=== PATIENT | female | born 1995 | race Caucasian/White ===

== ENCOUNTER 2021-01-22 05:27 | Inpatient (IN) ==
[2021-01-22] MEDS ORDERED: OXYTOCIN 30 UNITS/500 ML BAG IV PRN ×2 (06:13→19:18)
[2021-01-22 07:46] LABS: Hematocrit (blood only) 41.2 % (37-47); Hemoglobin 14.4 g/dL (12.0-16.0); Mean Corpuscular Hemoglobin 35.2 pg (25-34); Mean Corpuscular Volume 100.7 fL (80-100); Mean Platelet Volume 13.3 fL (7.4-10.4); Platelet Count 118 K/uL (130-400); Platelet Estimate Decreased (Normal); RDW Coefficient of Variation 12.6 % (11.5-14.5); RDW Standard Deviation 45.6 fL (36.4-46.3); Red Blood Count 4.09 M/uL (4.2-5.4); White Blood Count 10.33 K/uL (4.8-10.8)
[2021-01-22] MEDS: LACTATED RINGER'S 1,000 ML IV PRN ×3 (09:29→15:48)
[2021-01-22] MEDS ORDERED: ePHEDrine sulfate 50 MG/ML AMP ONE (09:33)
[2021-01-22] MEDS ORDERED: fentaNYL citrate 100 MCG/2 ML VIAL ONE (09:33)
[2021-01-22] MEDS ORDERED: BUPIVACAINE 0.25% 30 ML VIAL ONE (09:33)
[2021-01-22] MEDS ORDERED: SODIUM CHLORIDE 0.9% INJ 10 ML VIAL ONE (09:33)
[2021-01-22] MEDS ORDERED: fentaNYL 2MCG/ML ROPIVACAINE 1.25MG/ML 100 ML BAG EPI ONE (09:34)
[2021-01-22 09:41] LABS: Creatinine Clr Calc Pharmacy 117.5 ml/min; Est GFR (African American) 140.3 ml/min; Est GFR (Non-African American) 121.1 ml/min
[2021-01-22] MEDS ORDERED: ePHEDrine sulfate 50 MG/ML AMP IV PRN (09:48)
[2021-01-22] MEDS ORDERED: fentaNYL 2MCG/ML ROPIVACAINE 1.25MG/ML 100 ML BAG EPI PRN (09:48)
[2021-01-22] MEDS ORDERED: ONDANSETRON INJ 2 MG/ML 2 ML VIAL IV PRN (09:48)
[2021-01-22] MEDS ORDERED: NALOXONE HCL 1 MG in SODIUM CHLORIDE 0.9% 1000ML 1,000 ML IV PRN (09:48)
[2021-01-22] MEDS ORDERED: NALBUPHINE HCL INJ 10 MG/ML AMP IV PRN (09:48)
[2021-01-22] MEDS ORDERED: NALOXONE HCL 0.4 MG/1 ML VIAL/CARP IV PRN (09:48)
[2021-01-22] MEDS ORDERED: diphenhydrAMINE 50 MG/ML VIAL IV PRN (09:48)
--- NOTE | 2021-01-22 09:48 | Anesthesiology Consultation ---
Date of Service January 22, 2021 Assessment & Plan ASA ASA2 Proposed Anesthesia Anesthesia Type: Labor Epidural Risk / Benefits Reviewed With: PT / POA / Parent / Guardian, Accepts Plan and Informed Consent Obtained History Height/Weight Height: 5 ft Weight: 77.111 kg Allergies Allergy/AdvReac Type Severity Reaction Status Date / Time No Known Allergies Allergy Verified 01/21/21 11:23 Medications Home Medications Medication Instructions Recorded Confirmed Last Taken vits 75-iron 28 mg-folic 1 pkg PO DAILY 05/06/20 01/22/21 01/21/21 acid 800 mcg-omega3 440 mg oral pack Active Medications Generic Name Dose Route Start Last Admin Trade Name Freq PRN Reason Stop Dose Admin Lactated Ringer's 1,000 mls @ 125 mls/hr 01/22/21 06:13 01/22/21 09:29 Lr IV 01/24/21 06:12 999 mls/hr .Q8H PRN Administration L&D Protocol Protocol Past Medical History Medical History Surgical abdomen Exercise / Class Metabolic Activity II 4-5 Yardwork/Stairs/Walk up hill Past Surgical History Surgical History Hx of tonsillectomy [place] teeth extracted Past Anesthesia History No Hx of Anesthesia Complications and No Family Hx of Anesthesia Complications History of PONV No Hx of PONV and No Hx of Motion Sickness Social History Smoking Status: Never smoker Hx Alcohol Use: No Hx Substance Use: No Review of Systems denies fever/cough/ colds/ chest pain/ SOB/ YARELY denies YARELY Physical Exam Vital Signs Last Vital Signs Temp 36.9 C 01/22/21 07:02 Pulse 101 H 01/22/21 09:44 Resp 20 01/22/21 07:02 BP 140/102 H 01/22/21 09:04 Pulse Ox 96 01/22/21 09:44 ENMT Mouth: no TMJ abnormality and no dentition abnormality Thyromental Distance: > or= 3.5 Finger Breadths Mallampati Class: II Neck neck extension not limited Respiratory normal respiratory effort; no respiratory distress Auscultation: lungs clear to auscultation bilaterally Cardiovascular Rate/Rhythm: regular rate and regular rhythm Neurologic moves all extremities Psychiatric Orientation: alert and oriented x 3 Testing Laboratory Results 01/22/21 06:21 01/22/21 09:10
--- NOTE | 2021-01-22 09:54 | History & Physical Report ---
Date of Service January 22, 2021 Assessment & Plan Admission and Anticipated Discharge Date Admission Date: January 22, 2021 IUP at 40 weeks in active labor requesting epidural analgesia BP elevated on admission but no PIH symptoms. PIH labs pending antcipate vaginal History of Present Illness Primary Care Provider: Lidia Alex Johnson Patient is a 25 yo white female EDC 01/23/21 who presents with SPROM at 0430 this morning. Contractions started shortly after this. GBS negative. otherwise has been uncomplicated. Allergies Allergy/AdvReac Type Severity Reaction Status Date / Time No Known Allergies Allergy Verified 01/21/21 11:23 Home Medications Medication Instructions Recorded Confirmed Type vits 75-iron 28 mg-folic 1 pkg PO DAILY 05/06/20 01/22/21 History acid 800 mcg-omega3 440 mg oral pack Patient History Medical History Surgical abdomen Surgical History Hx of tonsillectomy [place] teeth extracted Social History Smoking Status: Never smoker Hx Alcohol Use: No Hx Substance Use: No Preferred Language: Turkmen Communication Ability: Effective Box Car Washer Required: No Beliefs That Will Affect Care: None marital status: marital status details: Donnell (28) [phone] Current Living Situation: Spouse Current Living Situation Comment: house with current occupational status: employed current occupation: Payroll spec. @ [employer] Other Information That Helps Us Care for You: No Feels Safe at Home: Yes Safety Concerns: Feels Safe At This Time Assistive Devices: None Review of Systems All systems reviewed & are unremarkable except as noted in HPI & below Physical Exam Constitutional: WD/WN, vitals as above Respiratory: normal respiratory effort, lungs clear to auscultation Cardiovascular: RRR, no murmur, no edema Gastrointestinal (Abdomen): normal bowel sounds, soft, nontender, no hepatosplenomegaly Psychiatric: A+Ox3, euthymic affect Genitourinary: OB Exam Abdomen: + vertex, + estimated weight (6-7 pounds) and + regular contractions (2-3 minutes) Manual OB Exam: + cervical dilation 4 cm, + cervical effacement 100% and + station -1 OB Exam Monitor Tracing: + external uterine monitor used, + category I and + normal FHT variability Results & Data ([facility]) Vital Signs (Past 12 Hours) Vital Signs Temp Pulse Resp BP Pulse Ox 01/22/21 09:44 101 H 96 01/22/21 09:39 98 H 95 01/22/21 09:04 83 140/102 H 01/22/21 08:49 86 164/114 H 01/22/21 08:34 74 149/102 H 01/22/21 08:19 88 134/108 H 01/22/21 08:03 82 138/103 H 01/22/21 07:49 98 H 139/101 H 01/22/21 07:33 69 136/103 H 01/22/21 07:18 83 142/96 H 01/22/21 07:02 98.4 F 76 20 147/101 H 01/22/21 06:27 96 H 128/92 01/22/21 05:48 98.1 F 18 01/22/21 05:44 98.1 F 99 H 18 137/94 Coding Level of Care Code None
[2021-01-22] MEDS ORDERED: oxyCODONE/ACETAMINOPHEN 5mg/325mg TAB PO PRN (19:18)
[2021-01-22] MEDS ORDERED: SUPERCREAM 0.870% 15 GM JAR EXT PRN (19:18)
[2021-01-22] MEDS ORDERED: BENZOCAINE 20% AER SPR 82.5 GM CAN EXT PRN (19:18)
[2021-01-22] MEDS ORDERED: ACETAMINOPHEN 325 MG TAB PO PRN (19:18)
[2021-01-22] MEDS ORDERED: DIPHTHERIA/TETANUS/PERTUSSIS 0.5 ML SYR/VIAL IM ONE (19:18)
[2021-01-22] MEDS ORDERED: bisacodyL 10 MG SUPP PR PRN (19:18)
[2021-01-22] MEDS ORDERED: HYDROCORTISONE ACETATE 25 MG SUPP PR PRN (19:18)
[2021-01-22] MEDS: IBUPROFEN 600 MG TAB PO PRN (20:23)
--- NOTE | 2021-01-22 20:54 | Anesthesiology Progress Note ---
Date of Service January 22, 2021 Anesthesia Post Procedure Vital Signs Vital Signs: Temp Pulse Resp BP Pulse Ox 01/22/21 20:41 116 H 143/74 H 01/22/21 20:25 91 H 147/78 H 01/22/21 20:16 90 149/74 H 01/22/21 20:11 98 H 159/90 H 01/22/21 19:56 108 H 134/90 01/22/21 19:41 107 H 18 148/81 H 01/22/21 19:26 37.2 C 109 H 18 119/61 01/22/21 19:11 115 H 20 131/73 01/22/21 19:05 113 H 129/75 01/22/21 18:56 108 H 20 166/80 H 01/22/21 18:51 116 H 192/96 H 01/22/21 18:44 126 H 95 01/22/21 18:42 127 H 211/98 H 01/22/21 18:41 147 H 94 01/22/21 18:39 137 H 96 01/22/21 18:36 132 H 94 01/22/21 18:34 130 H 94 01/22/21 18:30 134 H 94 01/22/21 18:29 133 H 93 01/22/21 18:24 133 H 95 01/22/21 18:19 130 H 20 186/90 H 93 01/22/21 18:18 125 H 94 01/22/21 18:15 37.4 C 20 01/22/21 18:14 138 H 94 01/22/21 18:13 130 H 93 01/22/21 18:11 127 H 186/103 H 01/22/21 18:09 139 H 93 01/22/21 18:06 140 H 93 01/22/21 18:04 142 H 93 01/22/21 17:59 145 H 93 01/22/21 17:56 125 H 174/95 H 01/22/21 17:54 132 H 94 01/22/21 17:49 145 H 95 01/22/21 17:44 129 H 93 01/22/21 17:42 130 H 139/89 94 01/22/21 17:39 121 H 94 01/22/21 17:37 147 H 94 01/22/21 17:34 125 H 95 01/22/21 17:32 129 H 94 01/22/21 17:29 116 H 95 01/22/21 17:27 120 H 20 134/102 H 01/22/21 17:24 138 H 95 01/22/21 17:19 129 H 94 01/22/21 17:16 138 H 94 01/22/21 17:14 116 H 95 01/22/21 17:11 136 H 151/92 H 01/22/21 17:09 129 H 97 01/22/21 17:04 142 H 93 01/22/21 16:59 133 H 95 01/22/21 16:56 115 H 158/96 H 01/22/21 16:54 115 H 95 01/22/21 16:49 141 H 96 01/22/21 16:44 136 H 96 01/22/21 16:42 134 H 137/96 01/22/21 16:39 133 H 97 01/22/21 16:34 129 H 97 01/22/21 16:29 134 H 98 01/22/21 16:28 122 H 18 161/83 H 01/22/21 16:27 37.0 C 126 H 20 208/107 H 01/22/21 16:24 122 H 98 01/22/21 16:19 119 H 98 01/22/21 16:14 104 H 98 01/22/21 16:12 102 H 171/95 H 01/22/21 16:09 104 H 99 01/22/21 16:04 104 H 99 01/22/21 15:59 117 H 98 01/22/21 15:57 104 H 166/89 H 01/22/21 15:54 104 H 98 01/22/21 15:49 98 H 99 01/22/21 15:44 98 H 99 01/22/21 15:42 96 H 166/83 H 01/22/21 15:39 92 H 99 01/22/21 15:34 102 H 99 01/22/21 15:29 102 H 99 01/22/21 15:28 110 H 20 145/102 H 01/22/21 15:24 100 H 98 01/22/21 15:19 95 H 97 01/22/21 15:14 98 H 97 01/22/21 15:12 109 H 184/88 H 01/22/21 15:09 118 H 97 01/22/21 15:04 107 H 98 07/07/21 14:59 107 H 98 01/22/21 14:56 97 H 144/98 H 01/22/21 14:54 105 H 98 01/22/21 14:49 96 H 97 01/22/21 14:44 106 H 97 01/22/21 14:42 105 H 134/83 01/22/21 14:39 94 H 97 01/22/21 14:34 104 H 96 01/22/21 14:29 101 H 98 01/22/21 14:26 112 H 20 130/85 01/22/21 14:24 109 H 97 01/22/21 14:19 103 H 96 01/22/21 14:14 98 H 98 01/22/21 14:12 109 H 139/81 01/22/21 14:09 99 H 97 01/22/21 14:04 98 H 98 01/22/21 13:59 102 H 96 01/22/21 13:57 102 H 141/84 H 01/22/21 13:54 91 H 96 01/22/21 13:49 95 H 96 01/22/21 13:45 118 H 167/95 H 01/22/21 13:44 111 H 97 01/22/21 13:43 104 H 183/103 H 01/22/21 13:39 110 H 97 01/22/21 13:34 101 H 96 01/22/21 13:29 114 H 97 01/22/21 13:27 118 H 20 130/88 01/22/21 13:24 92 H 97 01/22/21 13:19 78 96 01/22/21 13:14 83 97 01/22/21 13:11 86 140/78 01/22/21 13:09 77 97 01/22/21 13:04 97 H 96 01/22/21 12:59 75 96 01/22/21 12:57 80 132/73 01/22/21 12:54 81 97 01/22/21 12:49 84 97 01/22/21 12:44 75 97 01/22/21 12:41 84 131/80 01/22/21 12:39 76 97 01/22/21 12:34 99 H 98 01/22/21 12:29 87 96 01/22/21 12:26 76 18 126/70 01/22/21 12:24 74 98 01/22/21 12:19 84 97 01/22/21 12:14 92 H 97 01/22/21 12:11 92 H 118/72 01/22/21 12:09 80 100 01/22/21 12:04 81 100 01/22/21 11:59 80 99 01/22/21 11:57 80 123/74 01/22/21 11:54 94 H 100 01/22/21 11:49 79 99 01/22/21 11:44 77 99 01/22/21 11:42 76 118/63 01/22/21 11:39 77 99 01/22/21 11:34 80 99 01/22/21 11:29 84 99 01/22/21 11:26 36.7 C 76 20 118/61 01/22/21 11:24 89 99 01/22/21 11:19 83 99 01/22/21 11:14 83 100 01/22/21 11:12 81 124/65 01/22/21 11:09 80 99 01/22/21 11:04 85 100 01/22/21 10:59 89 100 01/22/21 10:56 90 20 125/72 01/22/21 10:54 77 100 01/22/21 10:49 90 100 01/22/21 10:44 82 100 01/22/21 10:40 93 H 127/69 01/22/21 10:39 96 H 100 01/22/21 10:37 96 H 113/61 01/22/21 10:36 109 H 123/83 01/22/21 10:34 89 99 01/22/21 10:29 102 H 98 01/22/21 10:24 109 H 94 01/22/21 10:23 79 20 152/89 H 01/22/21 10:19 103 H 160/101 H 94 01/22/21 10:17 93 H 175/93 H 94 01/22/21 10:14 108 H 94 01/22/21 10:09 116 H 94 01/22/21 10:04 110 H 96 01/22/21 09:59 98 H 97 01/22/21 09:54 85 97 01/22/21 09:49 105 H 96 01/22/21 09:44 101 H 96 01/22/21 09:39 98 H 95 01/22/21 09:04 83 20 140/102 H 01/22/21 08:49 86 164/114 H 01/22/21 08:34 74 149/102 H 01/22/21 08:19 88 134/108 H 01/22/21 08:03 82 138/103 H 01/22/21 07:49 98 H 139/101 H 01/22/21 07:33 69 136/103 H 01/22/21 07:18 83 142/96 H 01/22/21 07:02 36.9 C 76 20 147/101 H 01/22/21 06:27 96 H 128/92 01/22/21 05:48 36.7 C 18 01/22/21 05:44 36.7 C 99 H 18 137/94 Pain Intensity Bilateral Abdomen: Pain Intensity: 0 Transfer of Care Handoff Completed per policy Notes Mental Status: alert / awake / arousable and participated in evaluation Patient Amnestic to Procedure: Yes Nausea / Vomiting: adequately controlled Pain: adequately controlled Airway Patency, RR, SpO2: stable & adequate BP & HR: stable & adequate Hydration State: stable & adequate Anesthetic Complications: no major complications apparent and Pt Satisfied with anesthetic care
--- NOTE | 2021-01-22 21:01 | Delivery Summary ---
Vaginal Delivery Summary Date of Service January 22, 2021 Patient is a 25-year-old nulliparous white female presented at 40+ weeks with ruptured membranes and spontaneous onset of contractions. She received effective epidural analgesia. She progressed to full dilation and pushed effectively over intact perineum for delivery of a viable male . After the head was delivered the rest of the infant delivered easily and was placed on the mother's abdomen for further attention and drying. There was poor respiratory effort and tone and the baby was placed on the bed for further stimulation and resuscitation. This was done after cord was clamped and cut. The placenta was expressed intact with a three-vessel cord a first-degree va ginal laceration was repaired with 3-0 chromic. Estimated blood loss was 300 cc. bleeding was controlled with dilute Pitocin. The infant responded to positive pressure ventilation and had spontaneous crying with better tone. As a precaution the baby was taken to the nursery for further evaluation. Please see toolman's notes for further information on the resuscitation. Vaginal Delivery Summary and 1st Degree LAC [facility] Vaginal Delivery Charge Delivery Type Details: and 1st Degree LAC
[2021-01-23] MEDS: IBUPROFEN 600 MG TAB PO PRN ×4 (03:17→20:37)
[2021-01-23] MEDS: DOCUSATE SODIUM 100 MG CAP PO SCH ×3 (06:29→20:37)
[2021-01-23 06:56] LABS: Hemoglobin 12.2 g/dL (12.0-16.0); Mean Corpuscular Hemoglobin 35.1 pg (25-34); Mean Corpuscular Hgb Conc 33.9 g/dL (32-36); Mean Corpuscular Volume 103.4 fL (80-100); Mean Platelet Volume 12.8 fL (7.4-10.4); Platelet Count 89 K/uL (130-400); RDW Coefficient of Variation 12.7 % (11.5-14.5); RDW Standard Deviation 47.5 fL (36.4-46.3); Red Blood Count 3.48 M/uL (4.2-5.4)
[2021-01-23] MEDS: PRENATAL VITAMIN 1 TAB PO SCH (07:45)
[2021-01-23] MEDS ORDERED: bisacodyL 5 MG TABEC PO SCH (20:00)
[2021-01-24 07:06] LABS: Hematocrit (blood only) 37.1 % (37-47); Hemoglobin 12.6 g/dL (12.0-16.0)
[2021-01-24] MEDS: DOCUSATE SODIUM 100 MG CAP PO SCH (07:41)
[2021-01-24] MEDS: IBUPROFEN 600 MG TAB PO PRN (07:41)
[2021-01-24] MEDS: PRENATAL VITAMIN 1 TAB PO SCH (07:41)
--- NOTE | 2021-01-24 07:45 | Obstetrical Progress Note ---
Date of Service January 24, 2021 Assessment & Plan (1) Encounter for care and examination after delivery: day 2 s/p . Doing well. Stable for discharge. Subjective Ambulation: ambulating normally Voiding: no voiding problems Passing Gas:: Yes Diet Tolerance:: regular diet Lochia:: Moderate Physical Exam Constitutional WD/WN, vitals as above Respiratory normal respiratory effort; no respiratory distress and no labored breathing Gastrointestinal (Abdomen) Inspection/Auscultation: abdomen normal to inspection; abdomen not distended Percussion/Palpation: abdomen soft; abdomen nontender, no guarding and abdomen not rigid Genitourinary OB Exam Abdomen: + fundal height Fundus: + firm and + relation to umbilicus (Below); not tender and not boggy Results & Data ([facility]) Vital Signs (Past 12 Hours) Vital Signs Temp Pulse Resp BP Pulse Ox 01/23/21 23:20 36.6 C 83 17 125/86 98
== END 2021-01-24 10:10 | disposition home or self-care (01) | DRG 807 ==
LOC: OPB 05:27 → 4S1 05:32 → 4S2 21:59

== ENCOUNTER 2022-12-01 01:46 | Inpatient (IN) ==
[2022-12-01] MEDS ORDERED: LACTATED RINGER'S 1,000 ML IV SCH ×2 (02:15→04:18)
--- NOTE | 2022-12-01 02:20 | History & Physical Report ---
Date of Service December 01, 2022 Assessment & Plan (1) Breech presentation: Plan: Grossly ruptured membranes 37 weeks plus breech confirmed by ultrasound at the bedside and cervix is closed and 50% I have recommended section discussed risks benefits alternatives section. The patient was counseled to the nature of the procedure including alternatives such as labor. Risks were discussed including bleeding infection injury to bowel bladder ureter vessels and even baby. Deep Vein thrombosis, pulmonary embolus discussed. Breakdown of incision reviewed. Deep vein thrombosis pulmonary embolus hernia and failure of the incision to heal were discussed Patient verbalized understanding of this and was given ample time to ask questions History of Present Illness Primary Care Provider: Lidia Johnson Visit [facility] Calculator Estimated Delivery Date Method Current WG Current Estimate 12/20/22 LMP (Certain) 36w 5d Other Estimates 12/18/22 Ultrasound #1 37w 0d LMP: 03/15/22 : 3 Full term: 1 Premature: 0 Total Number of Induced Abortions: 1 Total Number of Spontaneous Abortions: 0 Ectopics: 0 Multiple births: 0 Number of Living Children: 1 and Delivery Plans Rubella Equivocal Offer MMR pp Flu vaccine given 05/15/22- OB Visit Log Initial Weight:153 lb Allergies Allergy/AdvReac Type Severity Reaction Status Date / Time No Known Allergies Allergy Verified 11/27/22 07:39 Home Medications Medication Instructions Recorded Confirmed Type vits 75-iron 28 mg-folic 1 pkg PO DAILY 05/06/20 11/27/22 History acid 800 mcg-omega3 440 mg oral pack (Daily ) Patient History Surgical History Hx of tonsillectomy [place] teeth extracted Social History Smoking Status: Never smoker Do You Dip or Chew Tobacco: No; Hx Alcohol Use: No Hx Substance Use: No Preferred Language: Portuguese Communication Ability: Effective Staff Nuclear Weapons Officer Required: No Beliefs That Will Affect Care: None marital status: marital status details: Donnell (30) [phone] Current Living Situation: Spouse Current Living Situation Comment: lives with spouse and son, cats, 1 dog, spouse to change litter. current occupational status: unemployed current occupation: Payroll spec. @ [employer] Feels Safe at Home: Yes Assistive Devices: None Review of Systems as per Subjective / HPI Physical Exam Constitutional: WD/WN, vitals as above well developed and well nourished Respiratory: normal respiratory effort, lungs clear to auscultation normal respiratory effort Cardiovascular: RRR, no murmur, no edema Gastrointestinal (Abdomen): normal bowel sounds, soft, nontender, no hepatosplenomegaly Results & Data Vital Signs (Past 12 Hours) Vital Signs Pulse BP 12/01/22 02:08 103 H 132/82 Coding Level of Care Code None Diagnoses Breech presentation O32.1XX0
[2022-12-01 02:47] LABS: Hematocrit (blood only) 40.7 % (37.0-47.0); Hemoglobin 14.5 g/dl (12.0-16.0); Mean Corpuscular Hemoglobin 36.1 pg (25.0-34.0); Mean Corpuscular Hgb Conc 35.6 g/dL (32.0-36.0); Mean Corpuscular Volume 101.2 fL (80.0-100.0); Mean Platelet Volume 13.3 fL (9.4-12.4); Platelet Count 112 K/uL (130-400); RDW Coefficient of Variation 12.4 % (11.5-14.5); Red Blood Count 4.02 M/uL (4.20-5.40); White Blood Count 10.06 K/ul (4.8-10.8)
[2022-12-01] MEDS ORDERED: OXYTOCIN 10 UNITS/ML 10ML VIAL ONE ×2 (02:50→03:44)
[2022-12-01] MEDS ORDERED: METOCLOPRAMIDE HCL INJ 5 MG/ML 2 ML VIAL ONE (02:50)
[2022-12-01] MEDS ORDERED: ONDANSETRON INJ 2 MG/ML 2 ML VIAL ONE (02:50)
[2022-12-01] MEDS ORDERED: MoRPHine SULFATE PF 1 MG/ML 10 ML AMP/VIAL ONE (02:50)
[2022-12-01] MEDS ORDERED: CITRIC ACID/SODIUM CITRATE 15 ML UDC ONE (02:50)
[2022-12-01] MEDS ORDERED: fentaNYL citrate PF 100 MCG/2 ML VIAL ONE (02:50)
--- NOTE | 2022-12-01 03:03 | Anesthesiology Consultation ---
Date of Service December 01, 2022 Assessment & Plan (1) Supervision of normal intrauterine in multigravida: Chart Review Chart Review: Acceptable Risk for Surgery Consults Requested none ASA ASA2 Proposed Anesthesia Anesthesia Type: Spinal Risk / Benefits Reviewed With: PT / POA / Parent / Guardian, Accepts Plan and Informed Consent Obtained History Surgery Operation Date: 12/01/22 03:30 Proposed Procedures p Section in LD - J. Joe Jolly MD, FACOG Height/Weight Height: 5 ft Weight: 81.647 kg Allergies Allergy/AdvReac Type Severity Reaction Status Date / Time No Known Allergies Allergy Verified 12/01/22 02:35 Medications Home Medications Medication Instructions Recorded Confirmed Last Taken vits 75-iron 28 mg-folic 1 pkg PO DAILY 05/06/20 12/01/22 11/30/22 acid 800 mcg-omega3 440 mg oral pack (Daily ) Active Medications Generic Name Dose Route Start Last Admin Trade Name Freq PRN Reason Stop Dose Admin Cefazolin Sodium 2,000 mg in 15 mls @ 3.75 mls/min 12/01/22 06:00 12/01/22 03:06 Ancef 2000mg IV 12/01/22 18:00 3.75 mls/min PREOP JAMILA Administration Protocol Lactated Ringer's 1,000 mls @ 999 mls/hr 12/01/22 02:15 12/01/22 02:31 Lr IV 12/01/22 03:15 999 mls/hr .Q1H1M JAMILA Administration NPO Date Last Intake of Fluids: 12/01/22 Time Last Intake of Fluids: 00:00 Date Last Intake of Solids: 11/30/22 Time Last Intake of Solids: 17:30 Exercise / Class Metabolic Activity II 4-5 Yardwork/Stairs/Walk up hill Past Surgical History Surgical History Hx of tonsillectomy [place] teeth extracted Past Anesthesia History No Hx of Anesthesia Complications and No Family Hx of Anesthesia Complications History of PONV No Hx of PONV and No Hx of Motion Sickness Social History Smoking Status: Never smoker Do You Dip or Chew Tobacco: No Hx Alcohol Use: No Hx Substance Use: No substance use type: does not use Physical Exam Vital Signs Last Vital Signs Temp 36.9 C 12/01/22 02:37 Pulse 103 H 12/01/22 02:08 Resp 16 12/01/22 02:37 BP 132/82 12/01/22 02:08 ENMT Mouth: no TMJ abnormality Thyromental Distance: > or= 3.5 Finger Breadths Mallampati Class: II Neck normal visual inspection and trachea midline; neck extension not limited Respiratory normal respiratory effort Auscultation: lungs clear to auscultation bilaterally Cardiovascular Rate/Rhythm: regular rate and regular rhythm Heart Sounds: no murmur Musculoskeletal Spine: normal cervical ROM Extremities: full ROM of extremities Neurologic moves all extremities Psychiatric Orientation: alert and oriented x 3 Testing Laboratory Results 12/01/22 02:28
[2022-12-01] MEDS ORDERED: LACTATED RINGER'S 500 ML IV PRN (03:06)
[2022-12-01] MEDS ORDERED: KETOROLAC 30 MG/ML VIAL IV PRN ×2 (03:06→21:07)
[2022-12-01] MEDS ORDERED: ePHEDrine sulfate 50 MG/ML AMP IV PRN (03:06)
[2022-12-01] MEDS ORDERED: ONDANSETRON INJ 2 MG/ML 2 ML VIAL IV PRN ×2 (03:06→21:07)
[2022-12-01] MEDS ORDERED: METOCLOPRAMIDE HCL 20 MG in SODIUM CHLORIDE 0.9% 50 ML IV PRN (03:06)
[2022-12-01] MEDS ORDERED: diphenhydrAMINE 50 MG/ML VIAL IV PRN ×2 (03:06→21:07)
[2022-12-01] MEDS ORDERED: NALOXONE HCL 1 MG in SODIUM CHLORIDE 0.9% 1000ML 1,000 ML IV PRN (03:06)
[2022-12-01] MEDS ORDERED: MoRPHine SULFATE PF 1 MG/ML 10 ML AMP/VIAL INT SPINAL ONE (03:06)
[2022-12-01] MEDS ORDERED: NALBUPHINE HCL INJ 10 MG/ML AMP IV PRN (03:06)
[2022-12-01] MEDS ORDERED: MoRPHine SULFATE 2 MG/ML CARP IV PRN (03:06)
[2022-12-01] MEDS ORDERED: NALOXONE HCL 0.08 MG in SYRINGE 1.8 ML IV PRN (03:06)
[2022-12-01] MEDS ORDERED: NALOXONE HCL 0.4 MG/1 ML VIAL/CARP IV PRN (03:06)
[2022-12-01] MEDS ORDERED: NO NARCOTICS OR SEDATIVES SCH (03:15)
[2022-12-01] MEDS ORDERED: DC INTRASPINAL MORPHINE SCH (03:15)
[2022-12-01] MEDS ORDERED: SODIUM CHLORIDE 0.9% 1000ML 1,000 ML IV SCH (03:15)
[2022-12-01] MEDS ORDERED: PHENYLEPHRINE 100MCG/ML 5ML SYR ONE (03:28)
[2022-12-01] MEDS ORDERED: ePHEDrine sulfate 50 MG/ML SYR ONE (03:54)
--- NOTE | 2022-12-01 04:08 | Operative Report ---
PG Post Operative Report Pre & Post Diagnosis Operation Date: 12/01/22 03:30 Pre-Op Diagnosis: 1. Breech presenation 2. Rupture of membranes Post-Op Diagnosis: 1. Breech presenation 2. Rupture of membranes I identified the patient and participated in the time-out.: Yes Procedure Operation Date: 12/01/22 03:30 Actual Procedures p Section in LD Delivery of live female child at 0338 - Vanna Jolly MD, FACOG Surgeon Vanna Jolly MD, FACOG Botanical Technical Officer Dr. Ferreira Estimated Blood Loss 700 Findings Consistent with Post-Op Diagnosis Specimens Cord gases and cord blood Description of Procedure Regional anesthetic had been given by anesthesia patient was prepped and draped with a leftward tilt preoperative antibiotics had been given in appropriate timing by anesthesiology. Once the prep was allowed to fully dry timeout was performed. Pickups with teeth were used to test the incision area was found to be adequate for incision as the patient did not feel sharp pain. Scalpel was used to make a Pfannenstiel incision on the lower abdomen. We then cut through the subcutaneous fat down to the level of the anterior rectus sheath fascia this was cut in the midline and then extended laterally with the curved Jennings scissors. At this stage we then placed 2 Darby clamps on the anterior aspect of the fascia. Using the curved Jennings's we are able to dissect the fascia superiorly away from the rectus muscles. Care was taken to maintain hemostasis. Darby clamps were then placed to the inferior aspect of the anterior sheath of the fascia. Fascia was then dissected away from the rectus muscles inferiorly towards the pubic bone. A Darby was then placed in the midline both inferiorly and superiorly. This was to allow exposure by retraction rectus muscles were in the midline with were then able to cut through the peritoneum and then enter the peritoneal cavity. Opening was enlarged to allow exposure of the peritoneal cavity both superiorly and inferiorly. Once adequate space was obtained a bladder retractor was placed to expose the lower segment Metzenbaums were used to dissect the bladder flap inferiorly away from the uterus. This was done sharply bladder retractor was then repositioned to expose the lower segment of the uterus Fresh scalpel was used to make a low transverse incision on the uterus. Uterus was then entered bluntly with the operators finger, membranes ruptured and the opening was enlarged using the operators fingers bluntly pulling superiorly and inferiorly to allow exposure. Baby was delivered by first flexion of the breech presenting part which is the buttocks elevation of the breech out of the pelvis and then rotation of the back anterior delivery of both of the legs and then sweeping the arms medially towards the chest to deliver both of these there was no nuchal cord baby's head was easily delivered without excessive extension live vigorous female infant. Live vigorous infant. Fluid was clear cord clamped and cut cord gases obtained cord blood obtained baby handed to pediatrics. Placenta removed was removed with traction we ensure the entire placenta was removed with a moist lap sponge into the uterus. Uterus and adnexa were normal Uterus was then exteriorized. IV Pitocin had been started by anesthesia tone improved there were no extensions the uterus was then closed using 0 Monocryl in a 2 layer closure the first layer closed in a running locked fashion from left to right and then a second closure from left to right in a running nonlocked fashion. At this stage hemostasis was excellent. Uterus was placed back in the peritoneal cavity with suction irrigation out and inspection of the uterus at this stage revealed excellent hemostasis Retractors were removed urine color was clear at this stage of the case we inspected the rectus muscles they were hemostatic fascia was closed with 0 Vicryl subcutaneous fat was irrigated and closed with 3-0 Vicryl skin closed with 4-0 subcuticular Monocryl I attest to the content of the Intraoperative Record and any orders documented therein. Any exceptions are noted below. OB Procedure Charges 12674
[2022-12-01] MEDS ORDERED: HYDROCORTISONE ACETATE 25 MG SUPP PR PRN (04:18)
[2022-12-01] MEDS ORDERED: SENNA 8.6 MG TAB PO PRN (04:18)
[2022-12-01] MEDS ORDERED: MAGNESIUM HYDROXIDE SUSP 30 ML UDC PO PRN (04:18)
[2022-12-01] MEDS ORDERED: DIPHTHERIA/TETANUS/PERTUSSIS Vaccine (Tdap, Age 7+yrs) 0.5mL SYR/VL IM ONE (04:18)
[2022-12-01] MEDS ORDERED: BENZOCAINE 20% AER SPR 82.5 GM CAN EXT PRN (04:18)
--- NOTE | 2022-12-01 04:23 | Anesthesiology Progress Note ---
Date of Service December 01, 2022 Anesthesia Post Procedure Vital Signs Vital Signs: Temp Pulse Resp BP Pulse Ox 12/01/22 02:37 36.9 C 16 12/01/22 04:21 96 12/01/22 04:21 91 H 12/01/22 04:21 95/60 L 12/01/22 04:19 96 12/01/22 04:19 94 H 12/01/22 04:17 95 12/01/22 04:17 78 12/01/22 04:17 94 12/01/22 04:17 85 12/01/22 04:15 95 12/01/22 04:15 84 12/01/22 04:13 95 12/01/22 04:13 85 12/01/22 04:13 78 12/01/22 04:13 94/52 L 12/01/22 04:10 95 12/01/22 04:11 92 12/01/22 04:10 81 12/01/22 04:11 85 12/01/22 02:08 103 H 132/82 Notes Mental Status: alert / awake / arousable Patient Amnestic to Procedure: Yes Nausea / Vomiting: adequately controlled Pain: adequately controlled Airway Patency, RR, SpO2: stable & adequate BP & HR: stable & adequate Hydration State: stable & adequate Neuraxial Anesthesia: was administered and sensory block is resolving Anesthetic Complications: no major complications apparent
[2022-12-01] MEDS: OXYTOCIN 20 UNITS in LACTATED RINGER'S 1,000 ML IV SCH ×2 (04:31→12:33)
[2022-12-01] MEDS ORDERED: ceFAZolin 2000MG 2,000 MG/15 ML SYR IV SCH (06:00)
[2022-12-01] MEDS ORDERED: SODIUM CHLORIDE 0.9% 250 ML IV PRN (07:18)
[2022-12-01 07:26] LABS: Base Excess Cord Arterial Bld -0.2 mEq/L (-9-1.8); Base Excess Cord Venous Blood -0.8 mEq/L (-7.7-1.9); CO2 Cord Arterial Blood 63 mmHg (39.1-73.5); Cord Venous Blood HCO3 26 mmol/L (18.4-26.8); Cord Venous Blood PCO2 52 mmHg (30.4-57.2); Cord Venous Blood PO2 16 mmHg (14.1-43.3); Cord Venous Blood pH 7.31 (7.20-7.44); HCO3 Cord Arterial Blood 28 mmol/L (19.7-28.5); O2 Saturation Cord Venous Bld < 60.0 % (<68); Oxygen Sat Cord Arterial Blood < 60.0 % (<60); PO2 Cord Arterial Blood 8 mmHg (4.1-31.7); pH Cord Arterial Blood 7.26 (7.1-7.38)
[2022-12-01] MEDS: FERROUS SULFATE 325 MG TAB PO SCH (08:27)
[2022-12-01] MEDS: SIMETHICONE 80 MG CHEW PO SCH ×4 (08:27→20:20)
[2022-12-01] MEDS: PRENATAL VITAMIN 1 TAB PO SCH (08:27)
[2022-12-01] MEDS: DOCUSATE SODIUM 100 MG CAP PO SCH ×2 (08:29→20:20)
[2022-12-01] MEDS ORDERED: PROMETHAZINE HCL 25 MG in SODIUM CHLORIDE 0.9% 50 ML IV PRN (21:07)
[2022-12-01] MEDS ORDERED: diphenhydrAMINE Capsule 25 MG CAP PO PRN (21:07)
[2022-12-01] MEDS: oxyCODONE/ACETAMINOPHEN 5mg/325mg TAB PO PRN (21:42)
[2022-12-01] MEDS: IBUPROFEN 600 MG TAB PO PRN (21:42)
--- NOTE | 2022-12-02 05:40 | Obstetrical Progress Note ---
Date of Service <Mili Chu - Last Filed: 12/02/22 06:35> December 02, 2022 Assessment & Plan <Mili Alex Chu - Last Filed: 12/02/22 06:35> (1) care following delivery: Patient is PPD 1 s/p C/S and doing well. - Eating well, voiding well, ambulating well - Vitals reviewed and within normal limits - Pain well controlled with analgesics - OOB, ambulation, diet progression as tolerated - Blood type: A+, GBS neg, rubella equivocal (MMR ordered) - Plan to discharge tomorrow or Wednesday - After discharge, 6 week follow up with Dr. Jolly (2) Rubella non-immune status, antepartum: <Trisha Ferreira, DO - Last Filed: 12/02/22 07:58> (1) care following delivery: (2) Rubella non-immune status, antepartum: Subjective <Mili Chu DO - Last Filed: 12/02/22 06:35> Patient is a 27 yo female is POD #1 following delivery at 37 2/7 weeks. She reports feeling well overall this morning. She endorses mild abdominal cramping and 1-2/10 pain well managed on analgesics. Voiding without issue. Tolerating regular meals overnight and able to ambulate some. Persistent lochia with some improvement this morning. Currently breast feeding. Review of Systems Denies fever, chills, sweats. Denies SOB, difficulty breathing, chest pain, palpitations, and chest pressure. Denies breast pain. Denies dysuria. Denies headache or changes in vision. Physical Exam <Mili Chu DO - Last Filed: 12/02/22 06:35> General: Alert and oriented. No acute distress. CV: Regular rate and rhythm. No murmurs. Respiratory: CTA bilaterally. No rhonchi, wheezes, or crackles. No increased work of breathing. Abdomen: Positive bowel sounds. Soft, nontender, and nondistended. Uterus: Fundus firm and palpable 2 cm below umbilicus. Surgical scar clean and healing well. Lower extremities: No LE edema. No deep calf pain. Results & Data <Mili Chu DO - Last Filed: 12/02/22 06:35> Vital Signs (Past 12 Hours) Vital Signs Temp Pulse Resp BP Pulse Ox O2 Del Method 12/02/22 00:00 36.7 C 76 16 97/62 L 96 Room Air 12/01/22 21:00 16 100 12/01/22 20:00 36.9 C 80 16 99/66 L 100 Room Air 12/01/22 20:00 16 100 12/01/22 19:07 16 99 12/01/22 18:17 18 98 12/01/22 18:04 16 100 <Trisha Ferreira, - Last Filed: 12/02/22 07:58> Co-Signing Physician Notes Resident Physician Supervision Note: I interviewed and examined the patient. Discussed with Dr. Chu and agree with findings and plan as documented in the note. Any exceptions or clarifications are listed here: POD#1 doing well, incision CDI, abdomen soft/nontender. Fundus firm. Routine postop care. Documented By: Trisha Ferreira DO Resident Activity Tracking <Mili Chu, DO - Last Filed: 12/02/22 06:35> Resident Involvement: Resident Care Provided Care Provided: OB Delivery
[2022-12-02] MEDS ORDERED: MEASLES, MUMPS & RUBELLA VIRUS VIAL SQ ONE (06:35)
[2022-12-02 08:07] LABS: Hematocrit (blood only) 33.7 % (37.0-47.0); Hemoglobin 11.3 g/dl (12.0-16.0); Mean Corpuscular Hemoglobin 35.3 pg (25.0-34.0); Mean Corpuscular Hgb Conc 33.5 g/dL (32.0-36.0); Mean Corpuscular Volume 105.3 fL (80.0-100.0); Mean Platelet Volume 12.3 fL (9.4-12.4); Platelet Count 90 K/uL (130-400); RDW Coefficient of Variation 12.9 % (11.5-14.5); RDW Standard Deviation 49.1 fL (36.4-46.3); White Blood Count 9.81 K/ul (4.8-10.8)
[2022-12-02] MEDS: SIMETHICONE 80 MG CHEW PO SCH ×4 (08:08→19:03)
[2022-12-02] MEDS: DOCUSATE SODIUM 100 MG CAP PO SCH ×2 (08:09→19:03)
[2022-12-02] MEDS: oxyCODONE/ACETAMINOPHEN 5mg/325mg TAB PO PRN ×3 (08:09→19:04)
[2022-12-02] MEDS: FERROUS SULFATE 325 MG TAB PO SCH (08:09)
[2022-12-02] MEDS: PRENATAL VITAMIN 1 TAB PO SCH (08:09)
[2022-12-02] MEDS: IBUPROFEN 600 MG TAB PO PRN ×3 (08:09→19:03)
[2022-12-02 08:23] LABS: Basophils # (auto) 0.03 K/uL (0-0.2); Basophils % (auto) 0.3 %; Eosinophils # (auto) 0.06 K/uL (0-0.50); Eosinophils % (auto) 0.6 %; Immature Granulocytes # (auto) 0.06 K/uL (0.01-0.20); Immature Granulocytes % (auto) 0.6 %; Lymphocytes # (auto) 2.21 K/uL (1.2-3.4); Lymphocytes % (auto) 22.5 %; Monocytes # (auto) 1.03 K/uL (0.11-0.59); Monocytes % (auto) 10.5 %; Neutrophils # (auto) 6.42 K/uL (1.40-6.50); Neutrophils % (auto) 65.5 %; Platelet Estimate Decreased (Normal); Polychromasia 1+
[2022-12-02 09:24] LABS: Albumin Globulin Ratio 1.2 (0.9-2); Albumin Level 2.8 gm/dl (3.4-5.0); BUN Creatinine Ratio 10.4 (10-20); Bilirubin,Total 0.3 mg/dl (0.2-1.0); Calcium 8.5 mg/dl (8.6-10.3); Creatinine Clr Calc Pharmacy 117.3 ml/min; Est GFR (African American) 137.7 ml/min; Est GFR (Non-African American) 118.8 ml/min; Globulin 2.3 gm/dl (2.5-4.0); Total Protein 5.1 gm/dl (6.0-8.3)
[2022-12-02] MEDS ORDERED: bisacodyL 5 MG TABEC PO SCH (20:00)
[2022-12-03] MEDS ORDERED: bisacodyL 10 MG SUPP PR PRN
[2022-12-03] MEDS: IBUPROFEN 600 MG TAB PO PRN ×3 (04:29→12:27)
[2022-12-03] MEDS: oxyCODONE/ACETAMINOPHEN 5mg/325mg TAB PO PRN ×3 (04:29→12:28)
--- NOTE | 2022-12-03 06:08 | Obstetrical Progress Note ---
Date of Service <Mili Chu DO - Last Filed: 12/03/22 06:48> December 03, 2022 Assessment & Plan <Mili Alex Chu DO - Last Filed: 12/03/22 06:48> (1) care following delivery: Patient is PPD 2 s/p C/S and doing well. - Eating well, voiding well, ambulating well - Vitals reviewed and within normal limits - Pain well controlled with analgesics - OOB, ambulation, diet progression as tolerated - Blood type: A+, GBS neg, rubella equivocal (MMR ordered) - Plan to discharge today - After discharge, 6 week follow up with Dr. Jolly (2) Rubella non-immune status, antepartum: <Latrice Coreas MD, FACOG - Last Filed: 12/03/22 08:57> (1) care following delivery: (2) Rubella non-immune status, antepartum: Subjective <Mili Chu DO - Last Filed: 12/03/22 06:48> Patient is a 27 yo female is POD #2 following delivery at 37 2/7 weeks. She reports feeling well overall this morning. She denies abdominal cramping and 0-1/10 pain well managed on analgesics. Voiding without issue. Tolerating regular meals overnight and able to ambulate some. She has passed gas. Persistent lochia with some improvement this morning. Currently breast feeding. Review of Systems Denies fever, chills, sweats. Denies SOB, difficulty breathing, chest pain, palpitations, and chest pressure. Denies breast pain. Denies dysuria. Denies headache or changes in vision. Physical Exam <Mili Chu DO - Last Filed: 12/03/22 06:48> General: Alert and oriented. No acute distress. CV: Regular rate and rhythm. No murmurs. Respiratory: CTA bilaterally. No rhonchi, wheezes, or crackles. No increased work of breathing. Abdomen: Positive bowel sounds. Soft, nontender, and nondistended. Uterus: Fundus firm and palpable 2 cm below umbilicus. Surgical scar clean and healing well. Lower extremities: No LE edema. No deep calf pain. Results & Data <Mili Chu DO - Last Filed: 12/03/22 06:48> Vital Signs (Past 12 Hours) Vital Signs Temp Pulse Resp BP Pulse Ox O2 Del Method 12/02/22 23:00 36.9 C 79 16 116/68 96 Room Air 12/02/22 19:30 36.9 C 100 H 16 112/74 98 Room Air <Latrice Coreas MD, FACOG - Last Filed: 12/03/22 08:57> Co-Signing Physician Notes Resident Physician Supervision Note: I interviewed and examined the patient. Discussed with Dr. Chu and agree with findings and plan as documented in the note. Any exceptions or clarifications are listed here: Doing well. Desires d/c. Instructions given. Documented By: Latrice Coreas MD, FACOG Resident Activity Tracking <Mili Chu DO - Last Filed: 12/03/22 06:48> Resident Involvement: Resident Care Provided Care Provided: OB Delivery
[2022-12-03 06:28] LABS: Basophils # (auto) 0.06 K/uL (0-0.2); Basophils % (auto) 0.5 %; Eosinophils # (auto) 0.14 K/uL (0-0.50); Eosinophils % (auto) 1.3 %; Hematocrit (blood only) 32.9 % (37.0-47.0); Hemoglobin 11.1 g/dl (12.0-16.0); Immature Granulocytes % (auto) 0.9 %; Lymphocytes # (auto) 3.12 K/uL (1.2-3.4); Mean Corpuscular Hemoglobin 35.7 pg (25.0-34.0); Mean Corpuscular Hgb Conc 33.7 g/dL (32.0-36.0); Mean Corpuscular Volume 105.8 fL (80.0-100.0); Mean Platelet Volume 12.6 fL (9.4-12.4); Monocytes # (auto) 0.95 K/uL (0.11-0.59); Monocytes % (auto) 8.5 %; Neutrophils # (auto) 6.77 K/uL (1.40-6.50); Neutrophils % (auto) 60.8 %; Platelet Count 97 K/uL (130-400); RDW Coefficient of Variation 13.1 % (11.5-14.5); RDW Standard Deviation 50.4 fL (36.4-46.3); Red Blood Count 3.11 M/uL (4.20-5.40); White Blood Count 11.14 K/ul (4.8-10.8)
[2022-12-03] MEDS: PRENATAL VITAMIN 1 TAB PO SCH (08:40)
[2022-12-03] MEDS: SIMETHICONE 80 MG CHEW PO SCH ×2 (08:40→12:27)
[2022-12-03] MEDS: FERROUS SULFATE 325 MG TAB PO SCH (08:40)
[2022-12-03] MEDS: DOCUSATE SODIUM 100 MG CAP PO SCH (08:40)
--- NOTE | 2022-12-07 08:13 | Discharge Summary ---
Date of Service December 07, 2022 Admission HPI Per Admitting Provider Visit [facility] Calculator Estimated Delivery Date Method Current WG Current Estimate 12/20/22 LMP (Certain) 36w 5d Other Estimates 12/18/22 Ultrasound #1 37w 0d LMP: 03/15/22 : 3 Full term: 1 Premature: 0 Total Number of Induced Abortions: 1 Total Number of Spontaneous Abortions: 0 Ectopics: 0 Multiple births: 0 Number of Living Children: 1 and Delivery Plans Rubella Equivocal Offer MMR pp Flu vaccine given 05/15/22- OB Visit Log Initial Weight:153 lb Admission Exam (Per Admitting) Constitutional WD/WN, vitals as above well developed and well nourished Respiratory normal respiratory effort, lungs clear to auscultation normal respiratory effort Cardiovascular RRR, no murmur, no edema Gastrointestinal (Abdomen) normal bowel sounds, soft, nontender, no hepatosplenomegaly Discharge Data Consultations 12/01/22 02:15 Consult Anesthesiology Stat Procedures Performed Operation Date: 12/01/22 03:30 Actual Procedures p Section in Delivery of live female child at 0338 - Vanna Jolly MD, FACOG Hospital Course (1) care following delivery: Patient is PPD 2 s/p C/S and doing well. - Eating well, voiding well, ambulating well - Vitals reviewed and within normal limits - Pain well controlled with analgesics - OOB, ambulation, diet progression as tolerated - Blood type: A+, GBS neg, rubella equivocal (MMR ordered) - Plan to discharge today - After discharge, 6 week follow up with Dr. Jolly (2) Rubella non-immune status, antepartum: Supervising Physician Co-Signing Physician Notes Resident Physician Supervision Note: I interviewed and examined the patient. Discussed with Dr. Chu and agree with findings and plan as documented in the note. Any exceptions or clarifications are listed here: Doing well. Desires d/c. Instructions given. Documented By: Latrice Coreas MD, FACOG Coding Level of Care Code None Diagnoses care following delivery Z39.2 Rubella non-immune status, antepartum O09.899; Z28.39
== END 2022-12-03 12:43 | disposition home or self-care (01) | DRG 788 ==
LOC: OPB 01:46 → 4S1 01:51 → 4E2 07:00